=== PATIENT | male | born 1940 | race Caucasian/White ===

== ENCOUNTER → 2017-01-25 | Outpatient (REF) | payer MEDICARE, BC ==
[2017-01-25 14:04] LABS: ANION GAP 7 MEQ/L (8-16); BLOOD UREA NITROGEN 16 MG/DL (7-18); CALCIUM LEVEL 9.2 MG/DL (8.8-10.2); CARBON DIOXIDE LEVEL 31 MEQ/L (21-32); CHLORIDE LEVEL 103 MEQ/L (98-107); CHOLESTEROL LEVEL 170 MG/DL (<200); CREATININE FOR GFR 0.91 MG/DL (0.70-1.30); GLOMERULAR FILTRATION RATE > 60.0 (>42); GLUCOSE, FASTING 92 MG/DL (83-110); POTASSIUM SERUM 4.6 MEQ/L (3.5-5.1); SODIUM LEVEL 141 MEQ/L (136-145); TRIGLYCERIDES LEVEL 127 MG/DL (<150)
== END ==
LOC: M SFHCPLAZ 11:40
PROVIDERS: ATTEND Family Medicine
DX: R73.03 Prediabetes (principal); E78.5 Hyperlipidemia, unspecified; Z12.5 Encounter for screening for malignant neoplasm of prostate; Z23 Encounter for immunization
CPT/HCPCS: 80048; 80061; 83036; 90662; 90670; G0008; G0009; G0103; G0463

== ENCOUNTER 2017-05-09 06:44 | Day surgery (SDC) | payer MEDICARE, BC ==
[2017-05-09] MEDS ORDERED: LR 1,000 ML IV ×2 (07:00)
[2017-05-09] MEDS ORDERED: fentaNYL 100 MCG/2 ML INJECTION (J3010) As Ordered ×2 (07:04)
[2017-05-09] MEDS ORDERED: MIDAZOLAM INJ 2 MG/2 ML VIAL (J2250) As Ordered ×2 (07:04)
[2017-05-09] MEDS: PROPARACAINE 0.5% OPHTH SOL 15ML OS ×2 (08:15)
[2017-05-09] MEDS: OFLOXACIN 0.3 % (OCUFLOX) OPTH SOL 5ML OS ×2 (08:16)
[2017-05-09] MEDS: PHENYLEPHRINE 2.5% OPHTH SOL 2ML OS ×2 (08:16)
[2017-05-09] MEDS: TROPICAMIDE 1% OPHTH SOLN 2ML OS ×2 (08:16)
[2017-05-09] MEDS: POVIDONE-IODINE 5% OPHTH PREP SOL 30ML As Ordered ×2 (09:26)
[2017-05-09] MEDS: BALANCED SALT IRRIGATION SOLUTION 500ML BAG (FOR OR EYE MACHINE) As Ordered ×2 (09:29)
[2017-05-09] MEDS: DUOVISC (0.50ML VISCOAT/0.55ML PROVISC) OPHTH KIT As Ordered ×2 (09:31)
[2017-05-09] MEDS: LIDOCAINE 0.75%/EPINEPHRINE 0.025% IN BSS 1ML SYR INTRACAMERAL (OR ONLY) As Ordered (09:31)
[2017-05-09] MEDS: ACETYLCHOLINE OPHTH SOLN 1% 2ML (MIOCHOL-E) As Ordered ×2 (09:31)
[2017-05-09] MEDS: CEFUROXIME 1MG/0.1ML INTRACAMERAL INJ As Ordered ×2 (09:35)
== END 2017-05-09 10:42 | disposition home or self-care (01) ==
LOC: M SDC 06:44
DX: H25.12 Age-related nuclear cataract, left eye (principal); I10 Essential (primary) hypertension; E78.00 Pure hypercholesterolemia, unspecified; E11.9 Type 2 diabetes mellitus without complications; R56.9 Unspecified convulsions; Z79.899 Other long term (current) drug therapy
CPT/HCPCS: 66984; J2250

== ENCOUNTER 2017-06-06 06:14 | Day surgery (SDC) | payer MEDICARE, BC ==
[2017-06-06] MEDS ORDERED: PHENYLEPHRINE 2.5% OPHTH SOL 2ML OD (07:00)
[2017-06-06] MEDS ORDERED: OFLOXACIN 0.3 % (OCUFLOX) OPTH SOL 5ML OD (07:00)
[2017-06-06] MEDS ORDERED: PROPARACAINE 0.5% OPHTH SOL 15ML OD (07:00)
[2017-06-06] MEDS ORDERED: TROPICAMIDE 1% OPHTH SOLN 2ML OD (07:00)
[2017-06-06] MEDS ORDERED: fentaNYL 100 MCG/2 ML INJECTION (J3010) As Ordered (07:10)
[2017-06-06] MEDS ORDERED: MIDAZOLAM INJ 2 MG/2 ML VIAL (J2250) As Ordered (07:10)
[2017-06-06] MEDS: PROPARACAINE 0.5% OPHTH SOL 15ML OD (07:13)
[2017-06-06] MEDS: TROPICAMIDE 1% OPHTH SOLN 2ML OD (07:14)
[2017-06-06] MEDS: PHENYLEPHRINE 2.5% OPHTH SOL 2ML OD (07:14)
[2017-06-06] MEDS: OFLOXACIN 0.3 % (OCUFLOX) OPTH SOL 5ML OD (07:14)
[2017-06-06 07:26] LABS: BEDSIDE GLUCOSE 124 MG/DL (83-110)
[2017-06-06] MEDS: LIDOCAINE 0.75%/EPINEPHRINE 0.025% IN BSS 1ML SYR INTRACAMERAL (OR ONLY) As Ordered (08:06)
[2017-06-06] MEDS: POVIDONE-IODINE 5% OPHTH PREP SOL 30ML As Ordered (08:06)
[2017-06-06] MEDS: DUOVISC (0.50ML VISCOAT/0.55ML PROVISC) OPHTH KIT As Ordered ×2 (08:06→08:15)
[2017-06-06] MEDS: ACETYLCHOLINE OPHTH SOLN 1% 2ML (MIOCHOL-E) As Ordered (08:06)
[2017-06-06] MEDS: CEFUROXIME 1MG/0.1ML INTRACAMERAL INJ As Ordered (08:06)
[2017-06-06] MEDS: BALANCED SALT IRRIGATION SOLUTION 500ML BAG (FOR OR EYE MACHINE) As Ordered (08:06)
== END 2017-06-06 09:35 | disposition home or self-care (01) ==
LOC: M SDC 06:14
DX: H25.11 Age-related nuclear cataract, right eye (principal); I10 Essential (primary) hypertension; E11.9 Type 2 diabetes mellitus without complications; Z79.899 Other long term (current) drug therapy
CPT/HCPCS: 66984

== ENCOUNTER → 2017-06-24 | Outpatient (CLI) | payer MEDICARE, BC | LOC: M RAD 11:22 | DX: R47.01 Aphasia (principal); I65.23 Occlusion and stenosis of bilateral carotid arteries | CPT/HCPCS: 70544 ==

== ENCOUNTER 2017-08-14 13:19 | Outpatient (RCR) | payer MEDICARE, BC | END 2017-09-09 | disposition home or self-care (01) | LOC: M ST 13:19 | DX: Z51.89 Encounter for other specified aftercare (principal); R41.841 Cognitive communication deficit; R47.01 Aphasia; R41.3 Other amnesia; R47.89 Other speech disturbances | CPT/HCPCS: 96125 ==

== ENCOUNTER 2017-09-10 12:40 | Outpatient (RCR) | payer MEDICARE, BC | END 2017-10-10 | LOC: M ST 09-16 12:36 | DX: Z51.89 Encounter for other specified aftercare (principal); R41.841 Cognitive communication deficit; R47.01 Aphasia; R41.3 Other amnesia; R47.89 Other speech disturbances | CPT/HCPCS: 92507 ==

== ENCOUNTER 2017-11-11 01:02 | Emergency (ER) | payer MEDICARE, BC | END 2017-11-11 04:24 | disposition home or self-care (01) | LOC: M ED 01:02 | DX: M54.2 Cervicalgia (principal); R68.84 Jaw pain; E78.5 Hyperlipidemia, unspecified; Z79.899 Other long term (current) drug therapy | CPT/HCPCS: 99282 ==

== ENCOUNTER → 2018-03-18 | Outpatient (REF) | payer MEDICARE, BC | LOC: M SFHCPLAZ 15:55 | DX: C44.519 Basal cell carcinoma of skin of other part of trunk (principal) | CPT/HCPCS: 88305 ==

== ENCOUNTER → 2018-07-08 | Outpatient (REF) | payer MEDICARE, BC ==
[~2018-07-08] MED LIST: CLOP75TA2; DONEPEZIL; LAMI1TAB7 PO; LISI10TA4 PO; SIMV20TA2 PO; SIMV40TA2
== END ==
LOC: M SFHCPLAZ 17:33
PROVIDERS: ATTEND Dermatology
DX: C44.519 Basal cell carcinoma of skin of other part of trunk (principal); L57.0 Actinic keratosis

== ENCOUNTER → 2018-07-30 | Outpatient (REF) | payer MEDICARE, BC ==
[2018-07-30 12:41] LABS: FREE T4 1.08 NG/DL (0.76-1.46); THYROID STIMULATING HORMONE 1.05 uIU/ML (0.358-3.740); TOTAL 25(OH) VITAMIN D 26.4 NG/ML (30.0-100.0)
== END ==
LOC: M SFHCPLAZ 10:08
PROVIDERS: ATTEND Family Medicine
DX: G31.84 Mild cognitive impairment of uncertain or unknown etiology (principal)

== ENCOUNTER → 2018-08-20 | Outpatient (CLI) | payer MEDICARE, BC ==
--- NOTE | 2018-08-20 11:32 | REP ---
RENAL AND BLADDER ULTRASOUND WITH DUPLEX DOPPLER RENAL ARTERY EVALUATION: Real-time ultrasound evaluation of the kidneys is performed and demonstrate both kidneys to be normal in size and echotexture, right kidney measuring 10.7 x 4.6 x 5.0 cm and left kidney 1.2 x 4.7 x 5.2 cm. There is no hydronephrosis. No renal mass is seen. Urinary bladder measures 8.5 x 8.9 x 5.7 cm for a total volume of 225 mL. No mass or calculus is seen. Prostate is mildly enlarged 4.3 x 3.7 x 4.2 cm, total volume 33.3 mL. Real-time ultrasound evaluation and duplex Doppler interrogation of the renal arteries is performed bilaterally. Peak systolic velocity of the abdominal aorta at the level of the renal arteries is 132 cm/s. Peak systolic velocity of the main right renal artery is 130 cm/s, renal to aortic ratio is 0.98. Resistive indices are measured in the upper, middle, and lower thirds of the right kidney and range between 0.65 and 0.76. Acceleration times range between 0.03 and 0.04. Peak systolic velocity in the left renal artery is 174 cm/s, renal to aortic ratio 1.3. Resistive indices of the left kidney range between 0.71 and 0.75. Acceleration times range between 0.04 and 0.05. IMPRESSION: No compelling duplex Doppler sonographic evidence of significant renal artery stenosis bilaterally. Electronically Signed by Yasmany Dumont MD 08/20/2018 03:20 P
== END ==
LOC: M RAD 08:09
PROVIDERS: ATTEND Family Medicine
DX: I10 Essential (primary) hypertension (principal)

== ENCOUNTER → 2019-02-16 | Outpatient (REF) | payer MEDICARE, BC | LOC: M SFHCPLAZ 11:46 | PROVIDERS: ATTEND Dermatology | DX: D04.30 Carcinoma in situ of skin of unspecified part of face (principal); L57.0 Actinic keratosis ==

== ENCOUNTER → 2019-04-17 | Outpatient (REF) | payer MEDICARE, BC ==
[~2019-04-17] MED LIST changes: +AMLO5TAB6 PO; +MEMA1TAB3 PO; +PLAV1TAB2 PO; -SIMV20TA2 PO; +SIMV20TA22 PO; -SIMV40TA2; +SIMV40TA20 PO
[2019-04-17 16:08] LABS: BASO # 0.1 10^3/uL (0.0-0.2); BASO % 0.9 % (0.0-1.0); EOS # 0.6 10^3/uL (0.0-0.5); EOS % 6.5 % (0.0-3.0); HEMATOCRIT 47.9 % (42.0-52.0); HEMOGLOBIN 15.6 g/dl (13.5-17.5); LYMPH # 2.1 10^3/uL (1.5-5.0); MEAN CORPUSCULAR HEMOGLOBIN 30.3 pg (27.0-33.0); MEAN CORPUSCULAR HGB CONC 32.6 g/dl (32.0-36.5); MONO # 0.9 10^3/uL (0.0-0.8); MONO % 10.6 % (0.0-5.0); NEUTROPHILS % 57.4 % (36.0-66.0); PLATELET COUNT, AUTOMATED 261 10^3/uL (150-450); RED BLOOD COUNT 5.15 10^6/uL (4.30-6.10); WHITE BLOOD COUNT 8.7 10^3/uL (4.0-10.0)
[2019-04-17 16:25] LABS: ALBUMIN 4.5 GM/DL (3.2-5.2); ALT/SGPT 21 U/L (12-78); BILIRUBIN,TOTAL 0.6 MG/DL (0.2-1.0); BLOOD UREA NITROGEN 11 MG/DL (7-18); CALCIUM LEVEL 9.5 MG/DL (8.8-10.2); CARBON DIOXIDE LEVEL 31 MEQ/L (21-32); CHLORIDE LEVEL 103 MEQ/L (98-107); CHOLESTEROL LEVEL 158 MG/DL (<200); CHOLESTEROL RISK RATIO 3.291 (<5); CREATININE FOR GFR 0.95 MG/DL (0.70-1.30); FREE T4 0.97 NG/DL (0.76-1.46); GLOMERULAR FILTRATION RATE > 60.0 (>42); GLUCOSE, FASTING 103 MG/DL (70-100); HDL CHOLESTEROL 48 MG/DL (>40); LDL CHOLESTEROL 89 MG/DL (<100); NON-HDL-C 110 MG/DL; POTASSIUM SERUM 4.4 MEQ/L (3.5-5.1); SODIUM LEVEL 140 MEQ/L (136-145); THYROID STIMULATING HORMONE 0.861 uIU/ML (0.358-3.740); TRIGLYCERIDES LEVEL 107 MG/DL (<150); VITAMIN B12 LEVEL 509 PG/ML (247-911)
[2019-04-17 16:27] LABS: HEMOGLOBIN A1c 6.5 %
[2019-04-17 16:36] LABS: INR 1.08; PROTHROMBIN TIME 13.7 SECONDS (11.8-14.0)
[2019-04-17 16:37] LABS: PARTIAL THROMBOPLASTIN TIME 35.3 SECONDS (25.0-38.4)
== END ==
LOC: M SFHCPLAZ 12:37
PROVIDERS: ATTEND Family Medicine
DX: E78.5 Hyperlipidemia, unspecified (principal); R73.01 Impaired fasting glucose; F03.90 Unspecified dementia, unspecified severity, without behavioral disturbance, psychotic disturbance, mood disturbance, and anxiety; G45.9 Transient cerebral ischemic attack, unspecified
CPT/HCPCS: 36415; 80053; 80061; 82607; 83036; 83525; 84439; 84443; 85025; 85046; 85610; 85730; 93005; G0463

== ENCOUNTER 2019-05-08 07:50 | Day surgery (SDC) | payer MEDICARE, BC ==
[~2019-05-08] VITALS: Ht 167.6 cm; Wt 82.9 kg
[~2019-05-08 07:50] MED LIST changes: +LIDOCAINE 1% MDV 20ML VIAL SQ PRN; +LR 1,000 ML IV ONE; +ceFAZolin SOD 2 GM in IV 1 EA IV ONE
[2019-05-08] MEDS ORDERED: ceFAZolin SOD 1 GM in D5W MINI-BAG PLUS 50 ML IV ONE (08:30)
[2019-05-08] MEDS ORDERED: BUPIVACAINE/EPIN 0.25% 30 ML VIAL As Ordered ONE (10:15)
[2019-05-08] MEDS ORDERED: LIDOCAINE 2% INJ 100 MG/5 ML SDV (FOR ANES.) As Ordered ONE (11:39)
[2019-05-08] MEDS ORDERED: PROPOFOL 200 MG/20 ML VIAL As Ordered ONE (11:39)
[2019-05-08] MEDS ORDERED: SUGAMMADEX SODIUM 500 MG/5 ML VIAL (BRIDION) As Ordered ONE (11:39)
[2019-05-08] MEDS ORDERED: ACETAMINOPHEN 1000MG 100ML IV BTL (OFIRMEV) (J0131 PER 10MG) As Ordered ONE (11:39)
[2019-05-08] MEDS ORDERED: ROCURONIUM BROMIDE 50 MG/5 ML VIAL As Ordered ONE (11:39)
[2019-05-08] MEDS ORDERED: KETOROLAC 60 MG/2 ML VIAL (J1885) As Ordered ONE (11:39)
[2019-05-08] MEDS ORDERED: fentaNYL 100 MCG/2 ML INJECTION (J3010) As Ordered ONE (11:39)
[2019-05-08] MEDS ORDERED: dexameTHASONE 4 MG/ML 1ML VIAL (J1100) As Ordered ONE (11:39)
[2019-05-08] MEDS ORDERED: ONDANSETRON 4MG/2ML VIAL (J2405) As Ordered ONE (11:39)
[2019-05-08] MEDS ORDERED: MIDAZOLAM INJ 2 MG/2 ML VIAL (J2250) As Ordered ONE (11:39)
--- NOTE | 2019-05-08 12:04 | RO ---
DATE OF PROCEDURE: 05/08/2019 PREOPERATIVE DIAGNOSIS: Right inguinal hernia. POSTOPERATIVE DIAGNOSIS: Right inguinal hernia (direct). PROCEDURE: Robotic-assisted laparoscopic right inguinal hernia repair with ProGrip mesh. SURGEON: Lino Tirado MD SALESPERSON JEWELRY: Jordyn Vela (provided instrument exchange, trocar placement, abdominal wall closure, and mesh placement). ANESTHESIA: General endotracheal anesthesia. ESTIMATED BLOOD LOSS (EBL): Minimal. FLUIDS: Crystalloid. DISPOSITION: The patient was taken to recovery room awake, alert, and hemodynamically stable. DESCRIPTION OF PROCEDURE: Brief operative summary: The patient was taken to the operating room and was given general anesthesia. After adequate anesthesia and preoperative antibiotics were given, the patient was prepped and draped in sterile fashion. Next, a supraumbilical incision was made with a skin knife. Blunt dissection was carried down to fascia, and Veress needle placed into the abdominal cavity insufflated to 15 mm pressure dilating. 8 mm trocar was placed at this time, and under direct visualization, two lateral 8 mm trocars were placed. The robot was docked, and the patient was placed in Trendelenburg position. There were some adhesions in the right side of the abdomen which were taken down with sharp dissection, and the peritoneum was taken down with monopolar cut scissors. Combination of blunt and sharp dissection was used to mobilize the hernia sac out of the direct inguinal area, and once this was mobilized quite nicely, off Jan's, the backside of pubis, and off the cord and its vessels, the mesh was cut to the appropriate size, placed in the preperitoneal space covering pubis, the direct component Jan's ligament quite nicely, and the patient's abdomen was partially deflated in this manner and revealed that the mesh covered the area even better. Next, the peritoneum was closed with running #3-0 V-Loc suture, and all trocars were removed under direct visualization. #4-0 Vicryl was used to close all incisions. Steri-Strips and a dry sterile dressing were applied. The patient was awakened, extubated, brought to the recovery room awake, alert, hemodynamically stable. Sponge and needle counts correct times two.
[2019-05-08] MEDS ORDERED: oxyCODONE 5MG TAB PO PRN (12:30)
[2019-05-08] MEDS ORDERED: ONDANSETRON 4MG/2ML VIAL (J2405) IV PRN (12:30)
[2019-05-08] MEDS ORDERED: NORCO, ANEXSIA 5/325MG TABLET (HYDROcodone/ACETAMINOPHEN) PO PRN (12:30)
[2019-05-08] MEDS ORDERED: LR 1,000 ML IV SCH ×2 (12:30)
[2019-05-08] MEDS ORDERED: fentaNYL 100 MCG/2 ML INJECTION (J3010) IV PRN (12:30)
[2019-05-08 15:50] VITALS: BP 144/68
[2019-05-08] MEDS ORDERED: KETOROLAC 30 MG/ML VIAL (J1885) IV SCH (18:00)
== END 2019-05-08 16:15 | disposition home or self-care (01) ==
LOC: M SDC 07:50
PROVIDERS: ATTEND Surgery
DX: K40.90 Unilateral inguinal hernia, without obstruction or gangrene, not specified as recurrent (principal); I10 Essential (primary) hypertension; E78.5 Hyperlipidemia, unspecified; Z86.73 Personal history of transient ischemic attack (TIA), and cerebral infarction without residual deficits; Z79.899 Other long term (current) drug therapy; F03.90 Unspecified dementia, unspecified severity, without behavioral disturbance, psychotic disturbance, mood disturbance, and anxiety; Z79.02 Long term (current) use of antithrombotics/antiplatelets
CPT/HCPCS: 49650; C1781; J0131; J0690; J1100; J1885; J2250; J2405; J3010

== ENCOUNTER → 2019-05-21 | Outpatient (REF) | payer MEDICARE, BC ==
[~2019-05-21] MED LIST changes: -LIDOCAINE 1% MDV 20ML VIAL SQ PRN; -LR 1,000 ML IV ONE; -ceFAZolin SOD 2 GM in IV 1 EA IV ONE
== END ==
LOC: M LAB REF 09:17
PROVIDERS: ATTEND Dermatology
DX: L90.5 Scar conditions and fibrosis of skin (principal)

== ENCOUNTER → 2019-06-23 | Outpatient (REF) | payer MEDICARE, BC | LOC: M LAB REF 09:23 | PROVIDERS: ATTEND Dermatology | DX: L81.4 Other melanin hyperpigmentation (principal) ==

== ENCOUNTER → 2019-07-16 | Outpatient (CLI) | payer MEDICARE, BC ==
--- NOTE | 2019-07-16 14:17 | REPPI ---
LEFT KNEE, FOUR VIEWS: Four views of the left knee are performed. No acute fracture or dislocation is seen. There is mild medial joint space narrowing. There are large spurs of the superior and inferior poles of the patella. There is a moderate joint effusion. There are posterior vascular calcifications. IMPRESSION: Degenerative changes as above. Moderate joint effusion. Electronically Signed by Yasmany Dumont MD 07/17/2019 04:42 P
== END ==
LOC: M PLAIMG 11:13
PROVIDERS: ATTEND Physician Assistant Medical
DX: M17.12 Unilateral primary osteoarthritis, left knee (principal); M25.562 Pain in left knee
CPT/HCPCS: 73564; G0463

== ENCOUNTER → 2020-02-09 | Outpatient (REF) | payer MEDICARE, BC ==
[~2020-02-09] MED LIST changes: +AMLO1TAB24 PO; -AMLO5TAB6 PO
== END ==
LOC: M LAB REF 18:53
PROVIDERS: ATTEND Dermatology
DX: C44.519 Basal cell carcinoma of skin of other part of trunk (principal)

== ENCOUNTER → 2020-03-11 | Outpatient (REF) | payer MEDICARE, BC ==
[2020-03-11 10:56] LABS: BASO # 0.1 10^3/uL (0.0-0.2); BASO % 0.9 % (0.0-1.0); EOS # 0.6 10^3/uL (0.0-0.5); EOS % 7.1 % (0.0-3.0); HEMATOCRIT 48.5 % (42.0-52.0); HEMOGLOBIN 15.3 g/dl (13.5-17.5); LYMPH # 2.1 10^3/uL (1.5-5.0); LYMPH % 24.5 % (24.0-44.0); MEAN CORPUSCULAR HEMOGLOBIN 29.4 pg (27.0-33.0); MEAN CORPUSCULAR HGB CONC 31.5 g/dl (32.0-36.5); MEAN CORPUSCULAR VOLUME 93.1 fl (80.0-96.0); MONO # 0.9 10^3/uL (0.0-0.8); MONO % 10.5 % (0.0-5.0); NEUTROPHILS # 4.9 10^3/uL (1.5-8.5); NEUTROPHILS % 56.7 % (36.0-66.0); PLATELET COUNT, AUTOMATED 278 10^3/uL (150-450); RED BLOOD COUNT 5.21 10^6/uL (4.30-6.10); WHITE BLOOD COUNT 8.7 10^3/uL (4.0-10.0)
[2020-03-11 11:25] LABS: HEMOGLOBIN A1c 6.1 %
[2020-03-11 11:32] LABS: ALT/SGPT 20 U/L (12-78); BILIRUBIN,TOTAL 0.6 MG/DL (0.2-1.0); BLOOD UREA NITROGEN 11 MG/DL (7-18); CARBON DIOXIDE LEVEL 31 MEQ/L (21-32); CHLORIDE LEVEL 105 MEQ/L (98-107); CREATININE FOR GFR 0.99 MG/DL (0.70-1.30); GLOMERULAR FILTRATION RATE > 60.0 (>42); GLUCOSE, FASTING 115 MG/DL (70-100); POTASSIUM SERUM 4.6 MEQ/L (3.5-5.1); SODIUM LEVEL 141 MEQ/L (136-145)
[2020-03-11 11:33] LABS: ALBUMIN 3.9 GM/DL (3.2-5.2); CHOLESTEROL LEVEL 160 MG/DL (<200); FREE T4 0.98 NG/DL (0.76-1.46); HDL CHOLESTEROL 50 MG/DL (>40); LDL CHOLESTEROL 97 MG/DL (<100); NON-HDL-C 110 MG/DL; TOTAL 25(OH) VITAMIN D 34.2 NG/ML (30.0-100.0); TOTAL PROTEIN 7.5 GM/DL (6.4-8.2); TRIGLYCERIDES LEVEL 67 MG/DL (<150)
[2020-03-11 11:34] LABS: FOLATE 7.4 NG/ML; VITAMIN B12 LEVEL 386 PG/ML
== END ==
LOC: M SFHCPLAZ 08:58
PROVIDERS: ATTEND Physician Assistant
DX: E78.5 Hyperlipidemia, unspecified (principal); I10 Essential (primary) hypertension; G62.9 Polyneuropathy, unspecified; R73.01 Impaired fasting glucose; R53.83 Other fatigue; Z79.899 Other long term (current) drug therapy

== ENCOUNTER 2020-11-25 14:41 | Observation (INO) | payer MEDICARE, BC ==
[~2020-11-25] VITALS: Ht 165.1 cm; Wt 83.1 kg
[~2020-11-25 14:41] MED LIST changes: +LISI10TA22 PO; -LISI10TA4 PO
[2020-11-25] MEDS ORDERED: LISI20TA33 PO (15:17)
--- NOTE | 2020-11-25 15:29 | REPVR ---
PROCEDURE INFORMATION: Exam: CT Head Without Contrast Exam date and time: 11/25/2020 3:22 PM Age: 80 years old Clinical indication: Other: Confusion; Additional info: Confused TECHNIQUE: Imaging protocol: Computed tomography of the head without contrast. Radiation optimization: All CT scans at this facility use at least one of these dose optimization techniques: automated exposure control; mA and/or kV adjustment per patient size (includes targeted exams where dose is matched to clinical indication); or iterative reconstruction. Other technique: STROKE PROTOCOL was implemented. COMPARISON: MI MRA BRAIN W/O CONTRAST 06/24/2017 12:27 PM FINDINGS: Brain: Moderate hypoattenuating foci are noted in the central cerebral, posterior superior periatrial and anterior lateral ventricular periventricular white matter bilaterally. No intracranial hemorrhage. No mass or acute cortical infarction identified. Cerebral ventricles: Prominence of the ventricular system and subarachnoid spaces is consistent with the patient's age of 80 years. Paranasal sinuses: Visualized sinuses are unremarkable. No fluid levels. Mastoid air cells: Visualized mastoid air cells are well aerated. Orbital cavity: Bilateral prior cataract surgery. Vasculature: Atherosclerotic calcifications are present involving the carotid artery siphons and vertebral arteries bilaterally. Bones/joints: No acute abnormality. No acute fracture. Soft tissues: Unremarkable. IMPRESSION: 1. Age appropriate supratentorial and infratentorial atrophy. 2. Moderate chronic white matter microvascular ischemic disease. 3. No acute intracranial abnormality identified. ASSESSMENT: ASPECTS ([place] Stroke Program Early CT Score) is 10. Electronically signed by: Priyank Vera On 11/25/2020 15:28:50 PM
--- NOTE | 2020-11-25 16:00 | REP ---
INDICATION: CVA. COMPARISON: Comparison chest x-ray January 27, 2016. TECHNIQUE: Portable upright AP chest radiograph. FINDINGS: EKG monitoring electrodes overlie the chest. Heart size is prominent unchanged. Pulmonary vasculature is not increased. The lungs are clear. Pleural angles are sharp. No acute bony abnormality is seen.. IMPRESSION: Mildly prominent heart. Otherwise no active disease.. <Electronically signed by Shiva Murray > 11/25/20 [id number]
[2020-11-25 16:10] LABS: BASO # 0.1 10^3/uL (0.0-0.2); BASO % 0.7 % (0.0-1.0); EOS # 0.7 10^3/uL (0.0-0.5); EOS % 7.4 % (0.0-3.0); HEMATOCRIT 42.5 % (42.0-52.0); HEMOGLOBIN 14.2 g/dl (13.5-17.5); LYMPH # 2.4 10^3/uL (1.5-5.0); LYMPH % 26.8 % (24.0-44.0); MEAN CORPUSCULAR HEMOGLOBIN 31.2 pg (27.0-33.0); MEAN CORPUSCULAR HGB CONC 33.4 g/dl (32.0-36.5); MEAN CORPUSCULAR VOLUME 93.4 fl (80.0-96.0); MONO # 1.2 10^3/uL (0.0-0.8); NEUTROPHILS # 4.7 10^3/uL (1.5-8.5); NEUTROPHILS % 51.7 % (36.0-66.0); PLATELET COUNT, AUTOMATED 257 10^3/uL (150-450); RED BLOOD COUNT 4.55 10^6/uL (4.30-6.10); WHITE BLOOD COUNT 9.1 10^3/uL (4.0-10.0)
[2020-11-25 16:21] LABS: INR 0.99; PROTHROMBIN TIME 13.3 SECONDS (12.5-14.3)
[2020-11-25 16:22] LABS: PARTIAL THROMBOPLASTIN TIME 35.6 SECONDS (24.2-38.5)
[2020-11-25 16:40] LABS: BLOOD UREA NITROGEN 22 MG/DL (7-18); CALCIUM LEVEL 8.4 MG/DL (8.8-10.2); CARBON DIOXIDE LEVEL 26 MEQ/L (21-32); CHLORIDE LEVEL 107 MEQ/L (98-107); CK-MB VALUE MASS 3.2 NG/ML (<3.6); CPK CREATINE PHOSPHOKINASE 260 U/L (39-308); CREATININE FOR GFR 1.17 MG/DL (0.70-1.30); GLOMERULAR FILTRATION RATE > 60.0 (>42); GLUCOSE, FASTING 145 MG/DL (70-100); MB/CK RELATIVE INDEX 1.23 (< OR =4); SODIUM LEVEL 138 MEQ/L (136-145); TROPONIN I < 0.02 NG/ML (< 0.10)
[2020-11-25] MEDS ORDERED: ASPIRIN 81 MG CHEW TABLET PO ONE (17:10)
--- NOTE | 2020-11-25 17:28 | HPEPDOC ---
General Date of Admission Date of Service: Nov 25, 2020 Attending Physician: DORA VANG MD Chief Complaint The patient is a 80-year-old male admitted with a reason for visit of General Medical Complaint. 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 Patient's brought him to the cryptological technician he did examination and asked the patient to see Dr. Oconnor from neurology but patient was very concerned she brought him to ED where he is being admitted with TIA rule out CVA diagnosis Home Medications Scheduled Amlodipine Besylate (Amlodipine Besylate) 5 Mg Tablet, 5 MG PO DAILY, (Reported) Lamotrigine (Lamictal) 100 Mg Tab, 250 MG PO DAILY, (Reported) Lisinopril (Lisinopril) 20 Mg Tablet, 1 TAB PO DAILY, (Reported) Memantine HCl (Memantine HCl) 5 Mg Tablet, 10 MG PO DAILY, (Reported) Simvastatin (Simvastatin) 40 Mg Tab, PO QHS, (Reported) Allergies Coded Allergies: No Known Allergies (Unverified , 04/30/19) Past Medical History Medical History Epilepsy expressive aphasia, hypertension, dementia, history of CVA, osteopenia Surgical History History of hernia repair Social History * Smoker: Denies Alcohol: Denies Drugs: denies A-FIB/CHADSVASC A-FIB History Current/History of A-Fib/PAF?: No Review of Systems Constitutional: Denies: Chills, Fever, Malaise, Night Sweats, Weakness, Fatigue, Weight Loss, Lethargy, Other Eyes: Reports: Other (Double vision on and off since last few month) ENT: Denies: Head Aches, Ear Pain, Dysphagia, Sinus Congestion, Post Nasal Drip, Sore Throat, Epistaxis, Other Symptoms Skin: Denies: Rash, Lesions, Jaundice, Bruising, Itching, Dry, Breakdown, Nail Changes, Other Pulmonary: Denies: Dyspnea, Cough, Pleuritic Chest Pain, Other Symptoms Cardiovascular: Denies: Chest Pain, Palpitations, Orthopnea, Paroxysmal Noc. Dyspnea, Edema, Lt Headedness, Other Symptoms Gastrointestinal: Denies: Nausea, Vomiting, Abdominal Pain, Diarrhea, Constipation, Melena, Hematochezia, Other Symptoms Genitourinary: Denies: Dysuria, Frequency, Incontinence, Hematuria, Retention, Other Symptoms Hematologic: Denies: Bruising, Bleeding Excessively, Petecchia, Purpura, Enlarged Lymph Nodes, Other Hematologic Endocrine: Denies: Polydipsia, Polyphagia, Polyuria, Heat Intolerance, Cold Intolerance, Other Endocrine Sx Musculoskeletal: Denies: Neck Pain, Back Pain, Shoulder Pain, Arm Pain, Hand Pain, Leg Pain, Foot Pain, Joint Pain, Muscle Pain, Spasms, Other Symptoms Neurological: Denies: Weakness, Numbness, Incoordination, Change in speech, Confusion, Seizures, Other Symptoms Psych: Denies: Mood Normal, Anxiety, Depression, Memory Issues, Thoughts of Self Harm, Anger, Thoughts of Harming Other, Other Psych Physical Examination General Exam: Positive: Alert, Cooperative Eye Exam: Positive: PERRLA, Conjunctiva & lids normal ENT Exam: Positive: Atraumatic Neck Exam: Positive: Supple Chest Exam: Positive: Clear to auscultation, Normal air movement Heart Exam: Positive: Normal S1, Normal S2 Abdomen Exam: Positive: Normal bowel sounds, Soft Extremity Exam: Positive: Other (No clubbing cyanosis edema) Skin Exam: Positive: Nl turgor and temperature Neuro Exam: Positive: Other (Positive expressive aphasia which is old in nature otherwise no new motor or sensory or cranial nerve deficit) Psych Exam: Positive: Mood NL, Oriented x 3 Vital Signs Vital Signs Date Time Temp Pulse Resp B/P (MAP) Pulse Ox O2 Delivery O2 Flow Rate FiO2 11/25/20 16:46 64 18 187/79 (115) 97 Room Air 11/25/20 14:43 98.6 Laboratory Data Labs 24H Laboratory Tests 2 11/25/20 15:53: Immature Granulocyte % (Auto) 0.4, Neutrophils (%) (Auto) 51.7, Lymphocytes (%) (Auto) 26.8, Monocytes (%) (Auto) 13.0H, Eosinophils (%) (Auto) 7.4H, Basophils (%) (Auto) 0.7, Neutrophils # (Auto) 4.7, Lymphocytes # (Auto) 2.4, Monocytes # (Auto) 1.2H, Eosinophils # (Auto) 0.7H, Basophils # (Auto) 0.1, Nucleated Red Blood Cells % (auto) 0.0, Prothrombin Time 13.3, Prothromb Time International Ratio 0.99, Activated Partial Thromboplast Time 35.6, Anion Gap 5L, Glomerular Filtration Rate > 60.0, Calcium Level 8.4L, Total Creatine Kinase 260, Creatine Kinase MB 3.2, Creatine Kinase MB Relative Index 1.23, Troponin I < 0.02 CBC/BMP Laboratory Tests 11/25/20 15:53 Problems (1) TIA (transient ischemic attack) Status: Acute Plan / VTE VTE Prophylaxis Ordered?: Yes Plan Plan This is 80 years old white male brought in by his to ED with past medical history of epilepsy, dementia, hypertension, 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 Patient's brought him to the cryptological technician he did examination and asked the patient to see Dr. Oconnor from neurology but patient was very concerned she brought him to ED where he is being admitted with TIA rule out CVA diagnosis On examination patient heart rate 64, respirate 18, blood pressure 187/79 WBC count 9.1 hemoglobin 14.2 platelets 257 electrolytes are normal with BUN 22 creatinine 1.[address] of the head done which showed: 1. Age appropriate supratentorial and infratentorial atrophy. 2. Moderate chronic white matter microvascular ischemic disease. 3. No acute intracranial abnormality identified. Chest x-ray shows prominent heart but no other changes #1 TIA rule out CVA #2 diplopia on and off since many months #3 history of epilepsy #4 history of hypertension #5 history of dementia Admit patient to [facility] floor with telemetry with diagnosis of TIA rule out CVA Patient had after multiple exams done as an outpatient today and was essentially within normal limit Further work-up for TIA/CVA including MRI of the brain, echocardiogram, bilateral carotid Dopplers has been ordered PT/OT evaluation and also speech evaluation has been called even though patient has a severe baseline expressive aphasia. DVT prophylaxis with heparin Aspirin 325 mg p.o. x1 was given in ED and will continue the same Continue simvastatin 40 mg p.o. daily memantine 10 mg p.o. daily lisinopril 20 mg p.o. daily Lamictal 250 mg p.o. daily and amlodipine 5 mg p.o. daily Neurology consult with Dr. Oconnor has been requested Further management plan depends on the neurology recommendation and pending work-up Diet is regular Activity as tolerated DORA VANG MD Nov 25, 2020 17:28
[2020-11-25] MEDS ORDERED: MOM 30ML SUSPENSION UDC PO PRN (17:45)
[2020-11-25] MEDS ORDERED: ACETAMINOPHEN TAB 650MG DOSE (2X325MG) PO PRN (17:45)
[2020-11-25] MEDS ORDERED: LAMI250T8 PO (18:12)
[2020-11-25 18:25] LABS: RSV AMPLIFICATION NEGATIVE (NEGATIVE)
--- NOTE | 2020-11-25 20:20 | REPVR ---
PROCEDURE INFORMATION: Exam: MR Head Without Contrast Exam date and time: 11/25/2020 7:07 PM Age: 80 years old Clinical indication: Speech disturbance and visual disturbance; Slurred speech; Additional info: TIA TECHNIQUE: Imaging protocol: MR of the head without contrast. COMPARISON: CT Head without contrast 11/25/2020 3:19 PM FINDINGS: Brain: No acute infarct identified on the diffusion-weighted imaging. No parenchymal hemorrhage. The brain demonstrates generalized volume loss. Patchy increased signal intensity in the deep and subcortical white matter as well as clay on the T2 weighted imaging most likely representing [id number] chronic small vessel ischemic change. Cerebral ventricles: The ventricles are mildly enlarged in keeping with volume loss. Bones/joints: Unremarkable. Paranasal sinuses: Mild sinus mucosal thickening. Retention cysts or polyps in the maxillary sinuses. Mastoid air cells: Normal as visualized. No mastoid effusion. Orbital cavity: Thinning of the lenses of the globes consistent with prior lens surgery. Soft tissues: Unremarkable. IMPRESSION: No evidence of acute infarct. Electronically signed by: Jenny Chiang On 11/25/2020 20:20:21 PM
--- NOTE | 2020-11-25 20:24 | REPVR ---
PROCEDURE INFORMATION: Exam: US Duplex Bilateral Extracranial Arteries Exam date and time: 11/25/2020 7:51 PM Age: 80 years old Clinical indication: Other: TIA TECHNIQUE: Imaging protocol: Real-time Duplex ultrasound scan of the bilateral carotid and vertebral arteries combining duarte scale, color Doppler and spectral waveform analysis. Bilateral exam. COMPARISON: US Duplex,carotid (complete) 06/24/2017 12:11 PM FINDINGS: Right common carotid artery: Unremarkable. No occlusion or stenosis. Waveforms are normal. Right internal carotid artery: Grayscale images demonstrate mild right ICA plaque. No velocity elevation. Right ICA/CCA ratio: Within normal limits. 1.1. Right external carotid artery: No stenosis in the origin. Right vertebral artery: The right vertebral artery was not visualized. Left common carotid artery: Unremarkable. No occlusion or stenosis. Waveforms are normal. Left internal carotid artery: Grayscale images demonstrate mild left ICA plaque. No velocity elevation. Left ICA/CCA ratio: Within normal limits. 0.6. Left external carotid artery: No stenosis in the origin. Left vertebral artery: Unremarkable. Antegrade flow. IMPRESSION: 1. Less than 50% right ICA stenosis. 2. Less than 50% left ICA stenosis. 3. The left vertebral artery appears patent and antegrade. 4. The right vertebral artery was not visualized. REFERENCES: SRU CRITERIA. The degree of internal carotid artery stenosis is based on criteria defined by the Society of Radiologists in Ultrasound (SRU). Normal is no stenosis. Mild is less than 50% stenosis. Moderate is 50-69% stenosis. Severe is greater than 69% stenosis to near occlusion. Near occlusion is a markedly narrowed lumen. Total occlusion is no detectable patent lumen. Electronically signed by: Jenny Chiang On 11/25/2020 20:24:03 PM
[2020-11-25 21:37] VITALS: BP 138/75
[2020-11-25] MEDS: HEPARIN SOD (PORCINE) 5000UNITS/ML 1ML VIAL/SYRINGE SC SCH (22:48)
[2020-11-25] MEDS: SIMVASTATIN 40 MG TAB PO SCH (22:49)
[2020-11-25] MEDS: MEMANTINE 5MG TABLET (NAMENDA) PO SCH (22:49)
[2020-11-25] MEDS: lamoTRIgine 100MG TAB PO SCH (22:49)
[2020-11-25] MEDS: amLODIPine 5 MG TAB PO SCH (22:50)
[2020-11-26 06:00] VITALS: BP 130/66
[2020-11-26 06:10] VITALS: BP 130/66
[2020-11-26 06:31] LABS: HEMATOCRIT 42.6 % (42.0-52.0); HEMOGLOBIN 14.1 g/dl (13.5-17.5); MEAN CORPUSCULAR HEMOGLOBIN 30.8 pg (27.0-33.0); MEAN CORPUSCULAR HGB CONC 33.1 g/dl (32.0-36.5); PLATELET COUNT, AUTOMATED 236 10^3/uL (150-450); RED BLOOD COUNT 4.58 10^6/uL (4.30-6.10); WHITE BLOOD COUNT 8.6 10^3/uL (4.0-10.0)
[2020-11-26 06:59] LABS: ALBUMIN 3.5 GM/DL (3.2-5.2); ALT/SGPT 26 U/L (12-78); BILIRUBIN,TOTAL 0.6 MG/DL (0.2-1.0); BLOOD UREA NITROGEN 16 MG/DL (7-18); CALCIUM LEVEL 8.8 MG/DL (8.8-10.2); CARBON DIOXIDE LEVEL 27 MEQ/L (21-32); CHLORIDE LEVEL 110 MEQ/L (98-107); CREATININE FOR GFR 0.99 MG/DL (0.70-1.30); GLOMERULAR FILTRATION RATE > 60.0 (>42); GLUCOSE, FASTING 127 MG/DL (70-100); MAGNESIUM LEVEL 2.3 MG/DL (1.8-2.4); POTASSIUM SERUM 4.5 MEQ/L (3.5-5.1); SODIUM LEVEL 142 MEQ/L (136-145); TOTAL PROTEIN 6.8 GM/DL (6.4-8.2)
[2020-11-26] MEDS: ASPIRIN 325 MG TAB PO SCH (09:07)
[2020-11-26] MEDS: lamoTRIgine 100MG TAB PO SCH ×2 (09:07→21:33)
[2020-11-26] MEDS: HEPARIN SOD (PORCINE) 5000UNITS/ML 1ML VIAL/SYRINGE SC SCH ×2 (09:08→21:33)
--- NOTE | 2020-11-26 10:54 | ECGEPIP ---
[facility] - ED Test Date: 2020-11-25 Pat Name: BRENT CHAVARRIA Department: Room: [place] [address] Gender: Male Quarantine Officer: JOSHUA : 1940 Requested By: KATT Agustin Order Number: [id number] Reading MD: Shira Robles Measurements Intervals [place] Rate: 53 P: 60 [place]: 208 QRS: -32 QRSD: 112 T: 26 QT: 460 QTc: 431 Interpretive Statements Sinus bradycardia Left axis deviation ivcd No prior Electronically Signed on 11-26-2020 10:53:34 EDT by Shira Robles
--- NOTE | 2020-11-26 11:34 | IPNPDOC ---
Subjective Date Seen The patient was seen on 11/26/20. Subjective Chief Complaint/HPI Patient is comfortable no symptoms offers no new complaints is difficult to get information secondary to dementia but he keeps telling me he saw 2 cars on both side and they became 1 yesterday. His expressive aphasia is much better today and I am able to understand his speech. General: Reports: ROS Unobtainable Objective Physical Examination General Exam: Positive: Alert, Cooperative Chest Exam: Positive: Clear to auscultation, Normal air movement Heart Exam: Positive: Normal S1, Normal S2 Abdomen Exam: Positive: Normal bowel sounds, Soft Extremity Exam: Positive: Other (No clubbing cyanosis edema) Skin Exam: Positive: Nl turgor and temperature Neuro Exam: Positive: Other (Positive expressive aphasia which is old in nature otherwise no new motor or sensory or cranial nerve deficit) Assessment /Plan Problems (1) TIA (transient ischemic attack) Status: Acute Plan/VTE VTE Prophylaxis Ordered?: Yes Plan This is 80 years old white male brought in by his to ED with past medical history of epilepsy, dementia, hypertension, 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 Patient's brought him to the manager zone he did examination and asked the patient to see Dr. Oconnor from neurology but patient was very concerned she brought him to ED where he is being admitted with TIA rule out CVA diagnosis On examination patient heart rate 64, respirate 18, blood pressure 187/79 WBC count 9.1 hemoglobin 14.2 platelets 257 electrolytes are normal with BUN 22 creatinine 1.[address] of the head done which showed: 1. Age appropriate supratentorial and infratentorial atrophy. 2. Moderate chronic white matter microvascular ischemic disease. 3. No acute intracranial abnormality identified. Chest x-ray shows prominent heart but no other changes #1 TIA rule out CVA #2 diplopia on and off since many months #3 history of epilepsy #4 history of hypertension #5 history of dementia Patient was admitted to [facility] floor with TIA rule out CVA, patient does have a history of expressive admixture from a previous CVA in the past Patient's MRI of the brain does not show any acute pathology including stroke or bleed Bilateral carotid Dopplers are essentially within normal limits Echocardiogram is still pending PT/OT/speech therapy consult on still pending Neurology consult was called which is still pending Continue aspirin 325 mg p.o. daily,simvastatin 40 mg p.o. daily memantine 10 mg p.o. daily lisinopril 20 mg p.o. daily Lamictal 250 mg p.o. daily and amlodipine 5 mg p.o. daily Patient can be discharged home once the echocardiogram, PT OT ST evaluations are complete and seen by neurologist. Regarding his diplopia which has been present since last few months he has seen manager zone as an outpatient and he can follow-up with them as outpatient once he is discharged home. Further management plan depends on the neurology recommendation and pending work-up Diet is regular Activity as tolerated VS, I&O, 24H, Fishbone Vital Signs/I&O Vital Signs Date Time Temp Pulse Resp B/P (MAP) Pulse Ox O2 Delivery O2 Flow Rate FiO2 11/26/20 06:10 97.9 51 13 130/66 (87) 98 Room Air I&O- Last 24 Hours up to 6 AM 11/26/20 06:00 Intake Total 0 ml Output Total 0 ml Balance 0 ml Laboratory Data 24H LABS Laboratory Tests 2 11/25/20 15:53: Immature Granulocyte % (Auto) 0.4, Neutrophils (%) (Auto) 51.7, Lymphocytes (%) (Auto) 26.8, Monocytes (%) (Auto) 13.0H, Eosinophils (%) (Auto) 7.4H, Basophils (%) (Auto) 0.7, Neutrophils # (Auto) 4.7, Lymphocytes # (Auto) 2.4, Monocytes # (Auto) 1.2H, Eosinophils # (Auto) 0.7H, Basophils # (Auto) 0.1, Nucleated Red Blood Cells % (auto) 0.0, Prothrombin Time 13.3, Prothromb Time International Ratio 0.99, Activated Partial Thromboplast Time 35.6, Anion Gap 5L, Glomerular Filtration Rate > 60.0, Calcium Level 8.4L, Total Creatine Kinase 260, Creatine Kinase MB 3.2, Creatine Kinase MB Relative Index 1.23, Troponin I < 0.02 11/25/20 17:25: Coronavirus (COVID-19)(PCR) NEGATIVE, Influenza Type A (RT-PCR) NEGATIVE, Influenza Type B (RT-PCR) NEGATIVE, Respiratory Syncytial Virus (PCR) NEGATIVE 11/26/20 05:51: Nucleated Red Blood Cells % (auto) 0.0, Anion Gap 5L, Glomerular Filtration Rate > 60.0, Calcium Level 8.8, Magnesium Level 2.3, Total Bilirubin 0.6, Aspartate Amino Transf (AST/SGOT) 17, Alanine Aminotransferase (ALT/SGPT) 26, Alkaline Phosphatase 80, Total Protein 6.8, Albumin 3.5, Albumin/Globulin Ratio 1.1 CBC/BMP Laboratory Tests 11/25/20 15:53 11/26/20 05:51 DORA VANG MD Nov 26, 2020 11:34
[2020-11-26 14:00] VITALS: BP 156/67
[2020-11-26 21:33] VITALS: BP 152/68
[2020-11-26] MEDS: MEMANTINE 5MG TABLET (NAMENDA) PO SCH (21:33)
[2020-11-26] MEDS: SIMVASTATIN 40 MG TAB PO SCH (21:33)
[2020-11-26] MEDS: amLODIPine 5 MG TAB PO SCH (21:33)
[2020-11-26 22:00] VITALS: BP 152/68
[2020-11-27 06:00] VITALS: BP 132/59
[2020-11-27 06:14] LABS: BASO # 0.1 10^3/uL (0.0-0.2); BASO % 0.9 % (0.0-1.0); EOS # 0.5 10^3/uL (0.0-0.5); EOS % 5.9 % (0.0-3.0); HEMATOCRIT 43.4 % (42.0-52.0); HEMOGLOBIN 14.2 g/dl (13.5-17.5); LYMPH # 2.4 10^3/uL (1.5-5.0); LYMPH % 26.9 % (24.0-44.0); MEAN CORPUSCULAR HEMOGLOBIN 30.3 pg (27.0-33.0); MEAN CORPUSCULAR HGB CONC 32.7 g/dl (32.0-36.5); MEAN CORPUSCULAR VOLUME 92.7 fl (80.0-96.0); MONO % 11.3 % (2.0-8.0); NEUTROPHILS # 4.9 10^3/uL (1.5-8.5); NEUTROPHILS % 54.6 % (36.0-66.0); PLATELET COUNT, AUTOMATED 234 10^3/uL (150-450); RED BLOOD COUNT 4.68 10^6/uL (4.30-6.10); WHITE BLOOD COUNT 8.9 10^3/uL (4.0-10.0)
[2020-11-27 06:37] LABS: ALBUMIN 3.6 GM/DL (3.2-5.2); ALT/SGPT 24 U/L (12-78); BILIRUBIN,TOTAL 0.5 MG/DL (0.2-1.0); BLOOD UREA NITROGEN 15 MG/DL (7-18); CALCIUM LEVEL 8.5 MG/DL (8.8-10.2); CARBON DIOXIDE LEVEL 28 MEQ/L (21-32); CHLORIDE LEVEL 108 MEQ/L (98-107); CREATININE FOR GFR 0.93 MG/DL (0.70-1.30); GLOMERULAR FILTRATION RATE > 60.0 (>42); GLUCOSE, FASTING 123 MG/DL (70-100); POTASSIUM SERUM 4.3 MEQ/L (3.5-5.1); SODIUM LEVEL 140 MEQ/L (136-145); TOTAL PROTEIN 6.8 GM/DL (6.4-8.2)
[2020-11-27] MEDS: ASPIRIN 325 MG TAB PO SCH (09:00)
[2020-11-27] MEDS: lamoTRIgine 100MG TAB PO SCH (09:00)
[2020-11-27] MEDS: HEPARIN SOD (PORCINE) 5000UNITS/ML 1ML VIAL/SYRINGE SC SCH (09:01)
--- NOTE | 2020-11-27 12:20 | DS.PDOC ---
Discharge Summary General Date of Admission Nov 25, 2020 at 14:42 Date of Discharge 11/27/2020 Attending Physician: JOSE ALBERTO SCHAFFER MD MPH Specialist/Consultants Involve: JANA HAYDEN MD Discharge Summary PROCEDURES PERFORMED DURING STAY: [None]. ADMITTING DIAGNOSES: 1. Diplopia 2. CVA/TIA DISCHARGE DIAGNOSES: 1. Diplopia (resolved) 2. Progressive expressive aphasia 3. Dementia COMPLICATIONS/CHIEF COMPLAINT: CVA. 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 Patient's brought him to the safety representative he did examination and asked the patient to see Dr. Oconnor from neurology but patient was very concerned she brought him to ED where he is being admitted with TIA rule out CVA diagnosis HOSPITAL COURSE: Patient had unremarkable head imaging and was evaluated by the Neurologist with the conclusion that CVA or TIA was unlikely at this time and that his presentation was more consistent with a progressive expressive dysphasia. Dr. Hayden recommended several antibody studies for the evaluation of this history of diplopia which were drawn prior to discharge and should result back in several weeks. On day of discharge patient was ambulating independently and had the opportunity to ask and have questions answered. He participated in the care plan and was discharged to home with follow up and medication change recommendations. DISCHARGE MEDICATIONS: Please see below. ALLERGIES: Please see below. PHYSICAL EXAMINATION ON DISCHARGE: VITAL SIGNS: Please see below. GENERAL: Well appearing, robust older male, NAD HEENT: EOMI, PERRLA, MMM NECK: Supple, no carotid bruits CARDIOVASCULAR EXAMINATION: RRR no M/R/G, no peripheral edema RESPIRATORY EXAMINATION: CTAB, no wheezing or rhonchi ABDOMINAL EXAMINATION: Obese, soft, nontender EXTREMITIES: No deformities SKIN: No lacerations NEUROLOGICAL EXAMINATION: AOx3, speech demonstrates some mild word finding difficulty and difficulty naming. Remote and immediate recall is good. PSYCHIATRIC EXAMINATION: Euthymic LABORATORY DATA: Please see below. IMAGING: Carotid duplex: IMPRESSION: 1. Less than 50% right ICA stenosis. 2. Less than 50% left ICA stenosis. 3. The left vertebral artery appears patent and antegrade. 4. The right vertebral artery was not visualized. Brain MRI IMPRESSION: No evidence of acute infarct. CXR IMPRESSION: Mildly prominent heart. Otherwise no active disease. CT Head: IMPRESSION: 1. Age appropriate supratentorial and infratentorial atrophy. 2. Moderate chronic white matter microvascular ischemic disease. 3. No acute intracranial abnormality identified. PROGNOSIS: Good ACTIVITY: [As tolerated]. DIET: Heart healthy DISCHARGE PLAN: Discharge to home with Speech and Neurology follow up DISCHARGE INSTRUCTIONS: 1. Follow up with Neurology in 7-10 days 2. Follow up with Speech in 5-7 days 3. Follow up with PCM in 5-7 days ITEMS TO FOLLOWUP ON ON OUTPATIENT: 1. Antibody testing for evaluation of diplopia 2. Speech therapy for fluency DISCHARGE CONDITION: [Stable]. TIME SPENT ON DISCHARGE: Greater than 33 minutes. Vital Signs/I&Os Vital Signs Date Time Temp Pulse Resp B/P (MAP) Pulse Ox O2 Delivery O2 Flow Rate FiO2 11/27/20 06:00 98.1 55 17 132/59 (83) 96 Room Air I&O- Last 24 Hours up to 6 AM 11/27/20 06:00 Intake Total 1555 ml Output Total 175 ml Balance 1380 ml Laboratory Data Labs 24H Laboratory Tests 2 11/27/20 05:45: Immature Granulocyte % (Auto) 0.4, Neutrophils (%) (Auto) 54.6, Lymphocytes (%) (Auto) 26.9, Monocytes (%) (Auto) 11.3H, Eosinophils (%) (Auto) 5.9H, Basophils (%) (Auto) 0.9, Neutrophils # (Auto) 4.9, Lymphocytes # (Auto) 2.4, Monocytes # (Auto) 1.0H, Eosinophils # (Auto) 0.5, Basophils # (Auto) 0.1, Nucleated Red Blood Cells % (auto) 0.0, Anion Gap 4L, Glomerular Filtration Rate > 60.0, Calcium Level 8.5L, Total Bilirubin 0.5, Aspartate Amino Transf (AST/SGOT) 19, Alanine Aminotransferase (ALT/SGPT) 24, Alkaline Phosphatase 77, Total Protein 6.8, Albumin 3.6, Albumin/Globulin Ratio 1.1 CBC/BMP Laboratory Tests 11/27/20 05:45 Discharge Medications Scheduled Amlodipine Besylate (Amlodipine Besylate) 5 Mg Tablet, 5 MG PO QHS, (Reported) Lamotrigine (Lamictal Xr) 250 Mg Tab.er.24, 250 MG PO QHS, (Reported) Lisinopril (Lisinopril) 20 Mg Tablet, 20 MG PO QHS, (Reported) Memantine HCl (Memantine HCl) 5 Mg Tablet, 10 MG PO QHS, (Reported) Simvastatin (Simvastatin) 40 Mg Tab, 40 MG PO QHS, (Reported) Allergies Coded Allergies: No Known Allergies (Unverified , 04/30/19) JOSE ALBERTO SCHAFFER MD MPH Nov 27, 2020 12:20
[2020-11-27] MEDS ORDERED: ASPI-551 PO (12:22)
[2020-11-27 14:00] VITALS: BP 123/56
--- NOTE | 2020-11-27 14:13 | CR ---
CONSULTATION DATE: 11/26/2020 REFERRING PROVIDER: Tima Hahn MD REASON FOR CONSULTATION: Possible TIA. HISTORY OF PRESENT ILLNESS: Marco Narayanan is a 80-year-old right-handed male with past medical history significant for remote epilepsy, history of prior documented dementia, unclear history regarding possible stroke with expressive aphasia in 2018 as the patient states that this particular part of his history is inaccurate, osteopenia and presenting with having intermittent double vision off and on. The patient's brought him in after being seen by an outside sales representative. He was told by the outside sales representative should follow up with neurology. The patient then was brought to [facility]. He was noted to have expressive aphasia, slight slurring of the speech. These particular symptoms overall have remained with exception of resolution of slurred speech. The patient had an MRI of the brain which was negative for any acute stroke. The patient has significant aphasia with inability to accurately say the words he is thinking of. He has paraphrase errors in speech. He has difficulty naming objects. He has mild difficulty reading. Writing was not tested. He has difficulty understanding spoken language following words and commands. The patient can repeat. The patient's speech is fluent though at times he is using the wrong word. If he is calm and relaxed, he can speak a little bit more fluently. He denies any weakness or numbness on either side of the body. He denies any difficulty ambulating. He was able to ride a bicycle recently. He was an avid and would run several miles a day and ride several miles on a bicycle a day. It is unclear whether he had any prior stroke as he denies any history of stroke. 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 It is unclear whether he is developing central temporal dementia. He was seen a couple times in our neurology clinic and then started following with the [facility] neurology clinic. He was quite upset with the quality of care he was receiving at [facility], being rushed out of the room every 15 minutes, he states. He wishes to follow with the [facility] neurology clinic once discharged. He will need speech therapy for his ongoing primary progressive aphasia. PAST MEDICAL HISTORY: 1. History of remote epilepsy. 2. Hypertension. 3. Dementia. 4. Osteopenia. 5. Questionable CVA. 6. Mixed aphasia. PAST SURGICAL HISTORY: Hernia repair. SOCIAL HISTORY: The patient denies use of any alcohol, tobacco or illicit drugs. ALLERGIES: No known drug allergies. HOME MEDICATIONS: 1. Amlodipine 5 mg p.o. q.d. 2. Lamotrigine 100 mg 250 mg daily. 3. Lisinopril 20 mg daily. 4. Memantine 10 mg daily. 5. Simvastatin 40 mg q.h.s. 6. Aspirin 325 mg has been given to the patient who has continued taking it. REVIEW OF SYSTEMS: Difficult to ascertain given the patient's aphasia though it appeared that 14 point review of systems is negative. PHYSICAL EXAMINATION: Blood pressure 152/68, pulse rate 67, respiratory rate of 17. Oxygenation is 98% on room air. Temperature is 97.7 degrees Fahrenheit. Patient is oriented to his name, location and year. He is able to follow commands though he is having some difficulty with right and left confusion. His speech is without dysarthria. He has difficulty naming objects. He can describe what objects are used for. He has mild difficulty reading. He has difficulty naming objects. He has no difficulty in repeating. He has difficulty understanding spoken speech with the physician or nurse speaking behind a mask. Pupils are 3 mm and round, reactive to light. Extraocular movements are intact without nystagmus. Sensation, V1, V2, V3 is intact. There is no facial asymmetry. Tongue is midline. There is no tongue atrophy or fasciculations. He can wiggle a finger up. There is no loss of strength in the sternocleidomastoid. There is no loss of strength in the deltoid, biceps, triceps, hand vehicle detailer, iliopsoas, quadriceps, anterior tibialis. Deep tendon reflexes are 2s throughout. Babinski signs are absent. Sensory is intact to light touch in all four extremities. Coordination without any ataxia, finger to nose testing. Patient has difficulty understanding to take his left index finger to touch his nose. He kept perseverating on the right index finger. This is due to his mixed aphasia with receptive component. Gait is normal. ASSESSMENT: 1. 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 2. Prior reported intermittent diplopia, none present on exam. 3. Prior questionable CVA, patient himself denies any episodes of stroke. The aphasia may not be from a stroke and may actually be from progressive aphasia. This will have to be looked further into in the outpatient neurology clinic. PLAN: 1. Continue aspirin, switch dose to 81 mg daily. Continue statin therapy. Recommend speech therapy. Continue memantine 10 mg daily. 2. Continue lamotrigine at current dosage for remote history of seizures. 3. Recommend acetacholine receptor binding, modulating, blocking antibodies to be tested as well as anti-striational antibody and anti-MuSK antibody to rule out myasthenia gravis given prior complaints of diplopia. 4. Recommend ongoing inpatient, outpatient speech therapy. 5. Patient can follow up in the neurology clinic in the next 4-6 weeks following discharge.
[2020-11-28] MEDS ORDERED: ASPIRIN 81MG ENTERIC TABLET PO SCH (09:00)
== END 2020-11-27 15:57 | disposition home or self-care (01) ==
LOC: M ED 14:41 → M ED INP 14:42 → ENRESERV 21:13 → M MSPAV 21:37
PROVIDERS: ADMIT Internal Medicine; ATTEND General Practice
DX: H53.2 Diplopia (principal); R47.01 Aphasia; F03.90 Unspecified dementia, unspecified severity, without behavioral disturbance, psychotic disturbance, mood disturbance, and anxiety; I10 Essential (primary) hypertension; Z86.73 Personal history of transient ischemic attack (TIA), and cerebral infarction without residual deficits; M85.89 Other specified disorders of bone density and structure, multiple sites; G40.909 Epilepsy, unspecified, not intractable, without status epilepticus; Z79.899 Other long term (current) drug therapy
CPT/HCPCS: 36415; 70450; 70551; 71045; 80048; 80053; 82550; 82553; 83516; 83519; 83735; 84484; 85025; 85027; 85610; 85730; 86255; 87631; 93005; 93041; 93880; 94760; 96372; 97162; 97530; 99285; G0378; J1644

== ENCOUNTER → 2020-12-08 | Outpatient (CLI) | payer MEDICARE, BC ==
[~2020-12-08] MED LIST changes: +ASPI-551 PO; +LAMI250T8 PO; +LISI20TA33 PO
--- NOTE | 2020-12-08 20:05 | ECHO ---
ECHOCARDIOGRAM DATE OF PROCEDURE: 12/08/2020 Age: 80 years Gender: Male Height: 66 inches Weight: 181 pounds Body Surface Area: 1.92 m2. Outpatient REFERRING PROVIDER: Sandhya London. INDICATION: TIA-cardiac source of embolic material? MEASUREMENTS: 2D Measurements: RV 4.2 cm LV 5.3 cm Septum 1.1 cm Posterior wall 1.1 cm Aortic Root 3.5 cm LA 3.9 cm LVEF 70% Doppler Measurements: AV - 1.8 m/s LVOT 1.05 m/s LVOT diameter 1.9 cm MV-E 69, A 57, E/A ratio 1.2 Early mitral deceleration time 232 ms E prime medial 6.9, A prime medial 12, E prime lateral 9.5 PV 1.0 m/s Pulmonary artery acceleration time 100 ms PASP 37 mmHg IVC 1.6 cm COMMENTS: Normal sinus rhythm/sinus bradycardia without intraventricular conduction disturbance. M-Mode and Two Dimensional Echocardiography was performed with pulse, continuous wave, color flow, and tissue Doppler studies. Normal left ventricular size, wall thickness, and wall motion. Left atrial size upper limits of normal with grade 1 LV diastolic dysfunction, but currently normal estimated left atrial pressure. Borderline dilated right heart chambers with normal wall motion and Doppler evidence of mild pulmonary hypertension. Normal inferior vena cava (IVC) size and collapse against an elevated central venous pressure. Normal aortic dimensions. Mild aortic valvular sclerosis without stenosis but very mild aortic insufficiency. Mild degenerative changes of his mitral valvular apparatus with mild-moderate mitral insufficiency. Normal-appearing tricuspid valve with mild insufficiency. No apparent intracardiac mass or pericardial effusion. 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 If cardiac source of embolic material is seriously suspect, would recommend a complete blood count, sedimentation rate, two sets of blood cultures, and consider a transesophageal echocardiogram to further define his aortic valve structure and function. SHIVAM
== END ==
LOC: M CARPUL 08:11
PROVIDERS: ATTEND Physician Assistant
DX: G45.9 Transient cerebral ischemic attack, unspecified (principal)

== ENCOUNTER 2021-02-03 11:45 | Emergency (ER) | payer MEDICARE, BC ==
[~2021-02-03] VITALS: Ht 165.1 cm; Wt 84.0 kg
[2021-02-03] MEDS ORDERED: KETOROLAC 60MG 2ML VIAL IM ONE (14:45)
--- NOTE | 2021-02-03 15:30 | REP ---
INDICATION: neck pain.dec rom. COMPARISON: None. TECHNIQUE: Helical scanning is acquired and overlapping 2 mm high resolution axial images were generated and reviewed at bone and soft tissue window settings. Coronal and sagittal multiplanar re-formations images are generated. FINDINGS: There is straightening of the normal cervical lordosis. There is diffuse degenerative disc disease and multilevel osteoarthritic facet disease. There is osteoarthritis at the articulation between the dens and anterior arch of C1. At C2-3, there is a degenerative 2 mm anterolisthesis. Disc space narrowing is seen. There is minimal uncovertebral spurring on the left. At C3-C4, there is degenerative narrowing of the disc, posterior osteophytic ridging and sclerosis. There is mild central canal stenosis at C3-4. Bilateral neural foraminal narrowing is seen due to uncovertebral spurring. Bilateral facet hypertrophy is present. At C4-C5, there is mild bilateral neural foraminal narrowing and mild central canal stenosis. Posterior osteophytic ridging and diffuse disc bulging are present at C4-C5. At C5-C6 there is degenerative disc narrowing. Moderate central canal stenosis is present at C5-6 min there is mild bilateral neural foraminal narrowing from uncovertebral spurring. At C6-C7, there is a broad-based diffuse disc bulge with discogenic calcification and spurring. There is moderate central canal stenosis at this level. There is marked bilateral neural foraminal narrowing at C6-7. The C7-T1 level shows no significant abnormality. No bony destructive lesion is seen. IMPRESSION: Advanced degenerative spondylosis with diffuse degenerative disc and facet disease. Multilevel neural foraminal narrowing and multilevel central canal stenosis. The central canal stenosis appears to be most pronounced at C5 5 6 and C6-7. No fracture or other acute bony abnormality. <Electronically signed by Shiva Murray > 02/03/21 [id number]
[2021-02-03] MEDS ORDERED: HYDR-4571 PO (15:56)
[2021-02-03 16:29] VITALS: BP 148/76
== END 2021-02-03 16:36 | disposition home or self-care (01) ==
LOC: M ED 11:45
DX: M47.812 Spondylosis without myelopathy or radiculopathy, cervical region (principal); I10 Essential (primary) hypertension; Z79.82 Long term (current) use of aspirin
CPT/HCPCS: 72125; 96372; 99283; J1885

== ENCOUNTER → 2021-03-07 | Outpatient (CLI) | payer MEDICARE, BC ==
[~2021-03-07] MED LIST changes: +HYDR-4571 PO
[2021-03-07 17:50] LABS: BASO # 0.1 10^3/uL (0.0-0.2); EOS # 0.6 10^3/uL (0.0-0.5); EOS % 6.7 % (0.0-3.0); HEMATOCRIT 45.1 % (42.0-52.0); HEMOGLOBIN 14.6 g/dl (13.5-17.5); LYMPH # 2.3 10^3/uL (1.5-5.0); LYMPH % 25.4 % (24.0-44.0); MEAN CORPUSCULAR HEMOGLOBIN 30.2 pg (27.0-33.0); MEAN CORPUSCULAR HGB CONC 32.4 g/dl (32.0-36.5); MEAN CORPUSCULAR VOLUME 93.4 fl (80.0-96.0); MONO # 1.1 10^3/uL (0.0-0.8); MONO % 12.8 % (2.0-8.0); NEUTROPHILS # 4.8 10^3/uL (1.5-8.5); NEUTROPHILS % 53.5 % (36.0-66.0); PLATELET COUNT, AUTOMATED 302 10^3/uL (150-450); RED BLOOD COUNT 4.83 10^6/uL (4.30-6.10); WHITE BLOOD COUNT 8.9 10^3/uL (4.0-10.0)
[2021-03-07 19:18] LABS: ALBUMIN 3.9 GM/DL (3.2-5.2); ALT/SGPT 32 U/L (12-78); BILIRUBIN,TOTAL 0.3 MG/DL (0.2-1.0); BLOOD UREA NITROGEN 18 MG/DL (7-18); CALCIUM LEVEL 9.6 MG/DL (8.8-10.2); CARBON DIOXIDE LEVEL 32 MEQ/L (21-32); CHLORIDE LEVEL 104 MEQ/L (98-107); CHOLESTEROL LEVEL 178 MG/DL (<200); CHOLESTEROL RISK RATIO 4.238 (<5); CREATININE FOR GFR 1.12 MG/DL (0.70-1.30); FREE T4 0.81 NG/DL (0.76-1.46); GLOMERULAR FILTRATION RATE > 60.0 (>42); GLUCOSE, FASTING 113 MG/DL (70-100); HDL CHOLESTEROL 42 MG/DL (>40); LDL CHOLESTEROL 63 MG/DL (<100); NON-HDL-C 136 MG/DL; POTASSIUM SERUM 4.6 MEQ/L (3.5-5.1); SODIUM LEVEL 140 MEQ/L (136-145); TOTAL PROTEIN 7.4 GM/DL (6.4-8.2); TRIGLYCERIDES LEVEL 363 MG/DL (<150)
[2021-03-07 19:43] LABS: HEMOGLOBIN A1c 6.8 %
== END ==
LOC: M PLALAB 13:47
PROVIDERS: ATTEND Physician Assistant Medical
DX: E78.5 Hyperlipidemia, unspecified (principal); G31.84 Mild cognitive impairment of uncertain or unknown etiology; R73.01 Impaired fasting glucose; G40.909 Epilepsy, unspecified, not intractable, without status epilepticus; I10 Essential (primary) hypertension
CPT/HCPCS: 36415; 80053; 80061; 80175; 83036; 84439; 84443; 85025; G0463

== ENCOUNTER → 2021-11-02 | Outpatient (CLI) | payer MEDICARE, BC ==
[2021-11-02 14:17] LABS: BASO # 0.1 10^3/uL (0.0-0.2); BASO % 0.9 % (0.0-1.0); EOS # 0.6 10^3/uL (0.0-0.5); EOS % 7.4 % (0.0-3.0); HEMATOCRIT 43.7 % (42.0-52.0); HEMOGLOBIN 14.3 g/dl (13.5-17.5); LYMPH # 2.1 10^3/uL (1.5-5.0); LYMPH % 26.6 % (24.0-44.0); MEAN CORPUSCULAR HEMOGLOBIN 30.7 pg (27.0-33.0); MEAN CORPUSCULAR HGB CONC 32.7 g/dl (32.0-36.5); MEAN CORPUSCULAR VOLUME 93.8 fl (80.0-96.0); MONO % 12.6 % (2.0-8.0); NEUTROPHILS % 52.2 % (36.0-66.0); PLATELET COUNT, AUTOMATED 255 10^3/uL (150-450); RED BLOOD COUNT 4.66 10^6/uL (4.30-6.10); WHITE BLOOD COUNT 7.7 10^3/uL (4.0-10.0)
[2021-11-02 14:58] LABS: ALBUMIN 4.4 GM/DL (3.2-5.2); ALT/SGPT 21 U/L (12-78); BILIRUBIN,TOTAL 0.4 MG/DL (0.2-1.0); BLOOD UREA NITROGEN 16 MG/DL (7-18); CALCIUM LEVEL 9.4 MG/DL (8.8-10.2); CARBON DIOXIDE LEVEL 28 MEQ/L (21-32); CHLORIDE LEVEL 109 MEQ/L (98-107); CHOLESTEROL LEVEL 142 MG/DL (<200); CHOLESTEROL RISK RATIO 3.302 (<5); CREATININE FOR GFR 0.95 MG/DL (0.70-1.30); FREE T4 0.84 NG/DL (0.76-1.46); GLOMERULAR FILTRATION RATE > 60.0 (>35); GLUCOSE, FASTING 118 MG/DL (70-100); HDL CHOLESTEROL 43 MG/DL (>40); LDL CHOLESTEROL 77 MG/DL (<100); NON-HDL-C 99 MG/DL; POTASSIUM SERUM 4.4 MEQ/L (3.5-5.1); SODIUM LEVEL 142 MEQ/L (136-145); TOTAL PROTEIN 7.5 GM/DL (6.4-8.2); TRIGLYCERIDES LEVEL 112 MG/DL (<150)
[2021-11-02 15:14] LABS: HEMOGLOBIN A1c 6.6 %
== END ==
LOC: M PLALAB 12:09
PROVIDERS: ATTEND Physician Assistant Medical
DX: R73.01 Impaired fasting glucose (principal); G31.84 Mild cognitive impairment of uncertain or unknown etiology; E78.5 Hyperlipidemia, unspecified; G40.909 Epilepsy, unspecified, not intractable, without status epilepticus; I10 Essential (primary) hypertension

== ENCOUNTER → 2022-04-25 | Outpatient (CLI) | payer MEDICARE, BC ==
[~2022-04-25] MED LIST changes: +CLOP75TA99 PO; -PLAV1TAB2 PO
[2022-04-25 10:20] LABS: BASO # 0.1 10^3/uL (0.0-0.2); BASO % 1.2 % (0.0-1.0); EOS # 0.6 10^3/uL (0.0-0.5); EOS % 7.5 % (0.0-3.0); HEMATOCRIT 46.2 % (42.0-52.0); HEMOGLOBIN 14.8 g/dl (13.5-17.5); LYMPH # 2.3 10^3/uL (1.5-5.0); LYMPH % 28.1 % (24.0-44.0); MEAN CORPUSCULAR HEMOGLOBIN 29.9 pg (27.0-33.0); MEAN CORPUSCULAR VOLUME 93.3 fl (80.0-96.0); MONO % 12.6 % (2.0-8.0); NEUTROPHILS # 4.1 10^3/uL (1.5-8.5); NEUTROPHILS % 50.2 % (36.0-66.0); PLATELET COUNT, AUTOMATED 296 10^3/uL (150-450); RED BLOOD COUNT 4.95 10^6/uL (4.30-6.10); WHITE BLOOD COUNT 8.2 10^3/uL (4.0-10.0)
[2022-04-25 10:58] LABS: HEMOGLOBIN A1c 6.8 % (4.0-6.0)
[2022-04-25 11:20] LABS: ALBUMIN 3.8 G/DL (3.2-5.2); ALKALINE PHOSPHATASE 88 U/L (46-116); ALT/SGPT 20 U/L (7.0-40); AST/SGOT 19 U/L (<34); BILIRUBIN,TOTAL 0.4 MG/DL (0.3-1.2); BLOOD UREA NITROGEN 11 MG/DL (9-23); CALCIUM LEVEL 8.7 MG/DL (8.3-10.6); CARBON DIOXIDE LEVEL 30 MMOL/L (20-31); CHLORIDE LEVEL 104 MMOL/L (98-107); CREATININE FOR GFR 0.96 MG/DL (0.70-1.30); GLOMERULAR FILTRATION RATE > 60.0 (>35); GLUCOSE, FASTING 112 MG/DL (74-106); POTASSIUM SERUM 4.4 MMOL/L (3.5-5.1); SODIUM LEVEL 140 MMOL/L (136-145); TOTAL PROTEIN 7.2 G/DL (5.7-8.2)
== END ==
LOC: M PLALAB 09:02
PROVIDERS: ATTEND Physician Assistant Medical
DX: R73.03 Prediabetes (principal)

== ENCOUNTER → 2022-10-24 | Outpatient (CLI) | payer MEDICARE, BC ==
[2022-10-24 14:32] LABS: HEMOGLOBIN A1c 6.6 % (4.0-6.0)
[2022-10-24 14:52] LABS: ALBUMIN 4.2 G/DL (3.2-5.2); ALKALINE PHOSPHATASE 97 U/L (46-116); ALT/SGPT 21 U/L (7.0-40); AST/SGOT 18 U/L (<34); BILIRUBIN,TOTAL 0.4 MG/DL (0.3-1.2); BLOOD UREA NITROGEN 18 MG/DL (9-23); CALCIUM LEVEL 8.9 MG/DL (8.3-10.6); CARBON DIOXIDE LEVEL 28 MMOL/L (20-31); CHLORIDE LEVEL 103 MMOL/L (98-107); CHOLESTEROL LEVEL 125 MG/DL (<200); CHOLESTEROL RISK RATIO 3.39 (<5); CREATININE FOR GFR 1.06 MG/DL (0.70-1.30); GLOMERULAR FILTRATION RATE > 60.0 (>35); GLUCOSE, FASTING 111 MG/DL (74-106); HDL CHOLESTEROL 36.8 MG/DL (>40); LDL CHOLESTEROL 67.6 MG/DL (<100); NON-HDL-C 88.2 MG/DL; POTASSIUM SERUM 4.3 MMOL/L (3.5-5.1); SODIUM LEVEL 139 MMOL/L (136-145); TOTAL PROTEIN 7.2 G/DL (5.7-8.2); TRIGLYCERIDES LEVEL 103 MG/DL (<150)
[2022-10-24 14:59] LABS: FREE T4 1.02 NG/DL (0.89-1.76)
[2022-10-24 15:00] LABS: THYROID STIMULATING HORMONE 0.912 uIU/ML (0.55-4.78)
[2022-10-24 15:02] LABS: VITAMIN B12 LEVEL 372 PG/ML (211-911)
== END ==
LOC: M PLALAB 10:00
PROVIDERS: ATTEND Physician Assistant Medical
DX: E78.5 Hyperlipidemia, unspecified (principal); R73.01 Impaired fasting glucose; I10 Essential (primary) hypertension; Z12.5 Encounter for screening for malignant neoplasm of prostate; G31.84 Mild cognitive impairment of uncertain or unknown etiology
CPT/HCPCS: 36415; 80053; 80061; 82607; 83036; 84439; 84443; G0103

== ENCOUNTER 2023-07-01 08:35 | Emergency (ER) | payer MEDICARE, BC ==
[2023-07-01] MEDS: ACETAMINOPHEN TAB 650MG DOSE (2X325MG) PO ONE (09:17)
[2023-07-01] MEDS ORDERED: ACET325C5 PO (10:13)
[2023-07-01 10:23] VITALS: BP 134/56; TEMP 97.4; O2SAT 98
== END 2023-07-01 10:25 | disposition home or self-care (01) ==
LOC: EDBD 08:35 → M ED 08:35
DX: S39.012A Strain of muscle, fascia and tendon of lower back, initial encounter (principal); F03.90 Unspecified dementia, unspecified severity, without behavioral disturbance, psychotic disturbance, mood disturbance, and anxiety; I10 Essential (primary) hypertension; E78.5 Hyperlipidemia, unspecified; Z86.79 Personal history of other diseases of the circulatory system; Z79.82 Long term (current) use of aspirin; Z79.811 Long term (current) use of aromatase inhibitors; Z79.899 Other long term (current) drug therapy

== ENCOUNTER → 2023-10-31 | Outpatient (CLI) | payer MEDICARE, BC ==
[~2023-10-31] MED LIST changes: +ACET325C5 PO
[2023-10-31 15:06] LABS: BASO # 0.1 10^3/uL (0.0-0.2); BASO % 0.9 % (0.0-1.0); EOS # 0.9 10^3/uL (0.0-0.5); EOS % 8.4 % (0.0-3.0); HEMATOCRIT 43.5 % (42.0-52.0); HEMOGLOBIN 14.4 g/dl (13.5-17.5); LYMPH # 2.4 10^3/uL (1.5-5.0); LYMPH % 23.3 % (24.0-44.0); MEAN CORPUSCULAR HEMOGLOBIN 30.7 pg (27.0-33.0); MEAN CORPUSCULAR HGB CONC 33.1 g/dl (32.0-36.5); MEAN CORPUSCULAR VOLUME 92.8 fl (80.0-96.0); MONO % 9.2 % (2.0-8.0); NEUTROPHILS # 5.9 10^3/uL (1.5-8.5); NEUTROPHILS % 57.8 % (36.0-66.0); PLATELET COUNT, AUTOMATED 274 10^3/uL (150-450); RED BLOOD COUNT 4.69 10^6/uL (4.30-6.10); WHITE BLOOD COUNT 10.3 10^3/uL (4.0-10.0)
[2023-10-31 15:24] LABS: PSA SCREENING 2.65 NG/ML (< 4.00)
[2023-10-31 15:27] LABS: CPK CREATINE PHOSPHOKINASE 128 U/L (46-171)
[2023-10-31 15:28] LABS: ALBUMIN 3.9 G/DL (3.2-5.2); ALKALINE PHOSPHATASE 96 U/L (46-116); ALT/SGPT 22 U/L (7.0-40); AST/SGOT 10 U/L (<34); BILIRUBIN,TOTAL 0.4 MG/DL (0.3-1.2); BLOOD UREA NITROGEN 23 MG/DL (9-23); CALCIUM LEVEL 9.5 MG/DL (8.3-10.6); CARBON DIOXIDE LEVEL 27 MMOL/L (20-31); CHLORIDE LEVEL 106 MMOL/L (98-107); CREATININE FOR GFR 1.07 MG/DL (0.70-1.30); GLOMERULAR FILTRATION RATE > 60.0 (>35); GLUCOSE, FASTING 186 MG/DL (74-106); POTASSIUM SERUM 4.4 MMOL/L (3.5-5.1); SODIUM LEVEL 139 MMOL/L (136-145); THYROID STIMULATING HORMONE 1.293 uIU/ML (0.55-4.78)
[2023-10-31 15:30] LABS: FREE T4 1.05 NG/DL (0.89-1.76); VITAMIN B12 LEVEL 1075 PG/ML (211-911)
[2023-10-31 15:41] LABS: HEMOGLOBIN A1c 6.3 % (4.0-6.0)
== END ==
LOC: M PLALAB 10:13
PROVIDERS: ATTEND Physician Assistant Medical
DX: E78.5 Hyperlipidemia, unspecified (principal); I10 Essential (primary) hypertension; R41.3 Other amnesia; R73.03 Prediabetes; Z12.5 Encounter for screening for malignant neoplasm of prostate

== ENCOUNTER 2024-01-25 18:05 | Emergency (ER) | payer MEDICARE, BC ==
[~2024-01-25] VITALS: Ht 162.6 cm; Wt 78.1 kg
[2024-01-25] MEDS ORDERED: MEMA10TA (18:16)
[2024-01-25 21:08] VITALS: BP 150/74; TEMP 97.8; O2SAT 96
== END 2024-01-25 21:16 | disposition left against medical advice (07) ==
LOC: M ED 18:05
DX: Z53.21 Procedure and treatment not carried out due to patient leaving prior to being seen by health care provider (principal)

== ENCOUNTER 2024-01-28 10:23 | Emergency (ER) | payer MEDICARE, BC ==
[~2024-01-28 10:23] MED LIST changes: +MEMA10TA
[2024-01-28 13:03] VITALS: BP 178/83; TEMP 97.5; O2SAT 96
[2024-01-28] MEDS: ACETAMINOPHEN TAB 650MG DOSE (2X325MG) PO ONE (13:07)
[2024-01-28] MEDS: KETOROLAC 30 MG/ML 1ML VIAL IM ONE (13:07)
== END 2024-01-28 13:25 | disposition home or self-care (01) ==
LOC: M ED 10:23
DX: M47.812 Spondylosis without myelopathy or radiculopathy, cervical region (principal); I10 Essential (primary) hypertension; F03.90 Unspecified dementia, unspecified severity, without behavioral disturbance, psychotic disturbance, mood disturbance, and anxiety; Z86.79 Personal history of other diseases of the circulatory system; Z79.82 Long term (current) use of aspirin; Z79.811 Long term (current) use of aromatase inhibitors; Z79.899 Other long term (current) drug therapy
CPT/HCPCS: 96372; 99283; J1885

== ENCOUNTER 2024-05-24 14:07 | Observation (INO) | payer MEDICARE, BC ==
[~2024-05-24 14:07] MED LIST changes: -MEMA10TA; +MEMA10TA PO
[2024-05-24] MEDS ORDERED: OLAN1TAB20 PO (14:15)
[2024-05-24] MEDS: LIDOCAINE 2% 5ML JELLY UROJET TOP ONE (14:20)
[2024-05-24 14:36] LABS: BASO # 0.1 10^3/uL (0.0-0.2); BASO % 0.3 % (0.0-1.0); EOS # 0.1 10^3/uL (0.0-0.5); EOS % 0.7 % (0.0-3.0); HEMATOCRIT 44.3 % (42.0-52.0); HEMOGLOBIN 14.7 g/dl (13.5-17.5); LYMPH # 2.5 10^3/uL (1.5-5.0); MEAN CORPUSCULAR HEMOGLOBIN 30.6 pg (27.0-33.0); MEAN CORPUSCULAR HGB CONC 33.2 g/dl (32.0-36.5); MEAN CORPUSCULAR VOLUME 92.1 fl (80.0-96.0); MONO # 1.8 10^3/uL (0.0-0.8); MONO % 9.9 % (2.0-8.0); NEUTROPHILS # 13.3 10^3/uL (1.5-8.5); NEUTROPHILS % 74.7 % (36.0-66.0); PLATELET COUNT, AUTOMATED 230 10^3/uL (150-450); RED BLOOD COUNT 4.81 10^6/uL (4.30-6.10); WHITE BLOOD COUNT 17.9 10^3/uL (4.0-10.0)
[2024-05-24 15:01] LABS: ALBUMIN 3.7 G/DL (3.2-5.2); ALKALINE PHOSPHATASE 89 U/L (40-129); ALT/SGPT 24 U/L (7.0-40); AST/SGOT 49 U/L (<34); BILIRUBIN,DIRECT 0.3 MG/DL (<0.4); BILIRUBIN,TOTAL 0.7 MG/DL (0.3-1.2); BLOOD UREA NITROGEN 23 MG/DL (9-23); CARBON DIOXIDE LEVEL 26 MMOL/L (20-31); CHLORIDE LEVEL 102 MMOL/L (98-107); CK-MB VALUE MASS 3.8 NG/ML (<3.6); CREATININE FOR GFR 1.26 MG/DL (0.70-1.30); GLOMERULAR FILTRATION RATE 58.3 (>35); GLUCOSE, FASTING 160 MG/DL (74-106); POTASSIUM SERUM 3.8 MMOL/L (3.5-5.1); SODIUM LEVEL 139 MMOL/L (136-145); TOTAL PROTEIN 7.9 G/DL (5.7-8.2)
[2024-05-24 15:02] LABS: KETONE, URINE AUTO RFX 1+ mg/dL (NEGATIVE); LEUKOCYTE ESTERASE UR AUTO RFX NEGATIVE (NEGATIVE); MUCUS, URINE RFX SMALL (NEGATIVE); NITRITE, URINE AUTO RFX NEGATIVE (NEGATIVE); RBC, URINE AUTO RFX 92 /HPF (0-3); SQUAM EPITHELIAL CELL UR AURFX 0 /HPF (0-6); WBC, URINE AUTO RFX 1 /HPF (0-3)
[2024-05-24 15:03] LABS: LIPASE 26 U/L (12-53); THYROID STIMULATING HORMONE 0.724 uIU/ML (0.55-4.78)
[2024-05-24 15:12] LABS: CPK CREATINE PHOSPHOKINASE 1634 U/L (46-171); MB/CK RELATIVE INDEX 0.23 (< OR =4)
[2024-05-24] MEDS: NS (Normal Saline) 0.9% 1,000 ML IV ONE (15:32)
[2024-05-24] MEDS ORDERED: ISOVUE-370 76% 100ML VIAL As Ordered ONE (15:35)
[2024-05-24 16:03] LABS: ETHYL ALCOHOL (ETHANOL) 0.004 % (0.000-0.010)
[2024-05-24 16:04] LABS: SALICYLATE LEVEL < 3.0 MG/DL (<30)
[2024-05-24 16:08] LABS: ABG HCO3 23.2 MMOL/L (22.0-26.0); ABG O2 SATURATION 96.1 % (95.0-99.0); ABG PARTIAL PRESSURE CO2 41.2 mmHg (35.0-45.0); ABG PARTIAL PRESSURE O2 84.1 mmHg (75.0-100.0); ABG STANDARD HCO3 22.8 MMOL/L. (22.0-26.0); ABG TOTAL CO2 24.4 MMOL/L (23.0-31.0); ABG pH (ARTERIAL) 7.368 UNITS (7.350-7.450)
[2024-05-24 16:10] VITALS: O2SAT 95
[2024-05-24 16:16] LABS: AMPHETAMINES LEVEL URINE NEGATIVE (NEGATIVE); BARBITURATES URINE NEGATIVE (NEGATIVE); BENZODIAZEPINES URINE NEGATIVE (NEGATIVE); CANNABINOIDS URINE NEGATIVE (NEGATIVE); PHENCYCLIDINE URINE NEGATIVE (NEGATIVE)
[2024-05-24 16:17] LABS: COCAINE METABOLITE URINE NEGATIVE (NEGATIVE); METHADONE URINE NEGATIVE (NEGATIVE); OPIATES URINE NEGATIVE (NEGATIVE)
[2024-05-24] MEDS: PIPERACILLIN/TAZOBACTAM SOD 4.5 GM in DEXTROSE 5% (D5W) ADV/MINI-BAG 50 ML IV ONE (16:36)
[2024-05-24] MEDS ORDERED: LORazepam 2 MG/ML 1ML VIAL IV PRN (16:55)
[2024-05-24] MEDS ORDERED: SCOPOLAMINE 1MG TRANSDERMAL PATCH TOP PRN (16:55)
[2024-05-24] MEDS ORDERED: MORPHINE 2 MG/ML 1ML VIAL IV PRN (16:55)
[2024-05-24] MEDS ORDERED: ASPI81TA26 PO (17:31)
[2024-05-24] MEDS ORDERED: HOME MED LIST COMPLETE! XX SCH (17:35)
[2024-05-24 17:54] VITALS: TEMP 98.9
[2024-05-24 19:15] VITALS: BP 113/55; O2SAT 94
[2024-05-24] MEDS ORDERED: lamoTRIgine 100MG TAB PO SCH (21:00)
[2024-05-24] MEDS: lamoTRIgine 25MG TAB PO SCH (21:40)
[2024-05-24] MEDS: lamoTRIgine 100MG TAB PO SCH (21:40)
[2024-05-25] MEDS: QUEtiapine FUMARATE 50MG TAB PO SCH (20:44)
[2024-05-25] MEDS: OSELTAMIVIR PHOSPHATE 75 MG CAP (TAMIFLU) PO SCH (20:44)
[2024-05-26] MEDS: LORazepam 2 MG/ML 1ML VIAL IM STA (00:04)
[2024-05-26] MEDS ORDERED: TAMI30CA PO (13:57)
== END 2024-05-26 15:03 | disposition home health service (06) ==
LOC: M ED 14:07 → EDBD 14:07 → M ED INP 14:08 → M MSPAV 05-25 16:46
PROVIDERS: ADMIT Internal Medicine; ATTEND Internal Medicine
DX: J10.00 Influenza due to other identified influenza virus with unspecified type of pneumonia (principal); F03.90 Unspecified dementia, unspecified severity, without behavioral disturbance, psychotic disturbance, mood disturbance, and anxiety; I69.320 Aphasia following cerebral infarction; I10 Essential (primary) hypertension; E78.5 Hyperlipidemia, unspecified; G40.909 Epilepsy, unspecified, not intractable, without status epilepticus; Z85.828 Personal history of other malignant neoplasm of skin; E11.9 Type 2 diabetes mellitus without complications; M85.80 Other specified disorders of bone density and structure, unspecified site; G47.00 Insomnia, unspecified; G93.41 Metabolic encephalopathy; E87.20 Acidosis, unspecified; M62.82 Rhabdomyolysis; Z66 Do not resuscitate; Z74.1 Need for assistance with personal care; Z79.82 Long term (current) use of aspirin; Z79.899 Other long term (current) drug therapy
CPT/HCPCS: 36415; 36600; 51701; 70450; 71045; 71260; 74177; 80047; 80048; 80076; 80143; 80307; 81001; 82077; 82550; 82553; 82803; 83605; 83690; 84443; 84484; 85025; 87040; 87077; 87154; 87186; 87486; 87581; 87633; 87798; 93005; 93041; 94760; 96361; 96365; 96372; 99285; G0378; J2060; J2543; Q9967

== ENCOUNTER → 2025-01-26 | Outpatient (REF) | payer MEDICARE, BC ==
[~2025-01-26] MED LIST changes: +ASPI81TA26 PO; +OLAN1TAB20 PO; +TAMI30CA PO
[2025-01-26 13:52] LABS: BASO # 0.1 10^3/uL (0.0-0.2); BASO % 1.3 % (0.0-1.0); EOS # 0.7 10^3/uL (0.0-0.5); EOS % 8.5 % (0.0-3.0); LYMPH # 2.2 10^3/uL (1.5-5.0); LYMPH % 29.3 % (24.0-44.0); MONO # 0.7 10^3/uL (0.0-0.8); MONO % 8.5 % (2.0-8.0); NEUTROPHILS # 4.0 10^3/uL (1.5-8.5); NEUTROPHILS % 52.3 % (36.0-66.0); PLATELET COUNT, AUTOMATED 308 10^3/uL (150-450)
[2025-01-26 14:10] LABS: ESTIMATED AVERAGE GLUCOSE 126.0 MG/DL (60-110)
[2025-01-26 14:30] LABS: ALT/SGPT 19.0 U/L (7.0-40); AST/SGOT 19.0 U/L (<34); CALCIUM LEVEL 9.4 MG/DL (8.3-10.6); CARBON DIOXIDE LEVEL 29.0 MMOL/L (20-31); CHLORIDE LEVEL 107.0 MMOL/L (98-107); CHOLESTEROL LEVEL 213.0 MG/DL (<200); CHOLESTEROL RISK RATIO 4.86 (<5); CREATININE FOR GFR 0.75 MG/DL (0.70-1.30); GLOMERULAR FILTRATION RATE 89.5 (>35); LDL CHOLESTEROL 144.4 MG/DL (<100); NON-HDL-C 169.2 MG/DL; POTASSIUM SERUM 3.8 MMOL/L (3.5-5.1); SODIUM LEVEL 146.0 MMOL/L (136-145); TRIGLYCERIDES LEVEL 124.0 MG/DL (<150)
[2025-01-26 14:32] LABS: FREE T4 1.28 NG/DL (0.89-1.76); VITAMIN B12 LEVEL 592.0 PG/ML (211-911)
== END ==
LOC: M LAB REF 12:17
PROVIDERS: ATTEND Physician Assistant Medical
DX: I10 Essential (primary) hypertension (principal); E78.5 Hyperlipidemia, unspecified; R41.3 Other amnesia; R73.01 Impaired fasting glucose; F03.90 Unspecified dementia, unspecified severity, without behavioral disturbance, psychotic disturbance, mood disturbance, and anxiety